=== PATIENT | male | born 1975 | race Caucasian/White ===

== ENCOUNTER → 2021-11-02 15:00 | Outpatient (CLI) | payer OTHER, SELFPAY ==
--- NOTE | 2021-11-02 15:03 | DI.RAD.S_ITS ---
PROCEDURE: XR KNEE RT 3V INDICATIONS: bilateral knee pain TECHNIQUE: 3 views of the knee were acquired. COMPARISON: [facility], CR, XR KNEE LT 3V, 11/02/2021, 15:10. FINDINGS: Bones: There is moderate femorotibial compartment narrowing and small tricompartmental osteophytes. Soft tissues: There is a trace knee joint effusion. IMPRESSION: Mild to moderate osteoarthritis and small joint effusion. Dictated by: Clementina Mac M.D. on 11/02/2021 at 16:10 Approved by: Clementina Mac M.D. on 11/02/2021 at 16:11
--- NOTE | 2021-11-02 15:03 | DI.RAD.S_ITS ---
PROCEDURE: XR KNEE LT 3V INDICATIONS: bilateral knee pain TECHNIQUE: 3 views of the knee were acquired. COMPARISON: None. FINDINGS: Bones: There is mild medial left femorotibial compartment narrowing. There are small patellofemoral osteophytes. Soft tissues: No joint effusion. No suspicious soft tissue calcifications. IMPRESSION: Mild degenerative change. Dictated by: Clementina Mac M.D. on 11/02/2021 at 16:10 Approved by: Clementina Mac M.D. on 11/02/2021 at 16:10
== END ==
PROVIDERS: PCP Family Medicine; Referring Provider Family Medicine; Visit Provider Family Medicine
DX: M17.11 Unilateral primary osteoarthritis, right knee (principal); M25.561 Pain in right knee; M25.562 Pain in left knee; M25.461 Effusion, right knee; G89.29 Other chronic pain
CPT/HCPCS: 73562

== ENCOUNTER → 2021-12-22 10:26 | Outpatient (CLI) | payer OTHER, SELFPAY ==
--- NOTE | 2021-12-22 10:51 | DIET.CONS ---
Dietary Consultation Note Assessment: 46y M attending RD visit with partner for help with weight loss secondary to osteoarthritis of knees. 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 Pt feels he feeds everyone else well but when it comes to himself, he is always second. Usual Day: wakes 7-8am cup or two coffee c sugar good water drinker-strength leaves for work 10-10:30am ordering, prepping, managing, cooking, some lunch service lunch starts noon sometimes makes a big salad Fri-Sun brunch service 10-2 algerian baby, biscuits and gravy 9pm family meal at end of the night- chicken, beef c veggies or potatoes dinner at 10pm. Often this meal doesn't get eaten, pt does not prefer leftovers. GF likes texmex, fried, casseroles. Had gastric sleeve surgery 8y ago and lost 175#. Pt has Mon, Tues off each week but is scramble to get house projects and shopping done. 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 No regular, intentional physical activity besides work related duties. 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 Interventions: 1. Introduced pt to hunger scale. Pt to start noticing hunger and fullness, eat when 3 and stop when 8. Pt will use scale to find meal time between 11am-2pm daily at work to regulate meal pattern. 2. Educated pt on OA and inflammation. Pt had been eating sweets and drinking beer, mostly avoiding now. Reinforced importance of Mediterranean diet on inflammation. 3. Pt with goal of maintaining 250# which is reasonable in relation to current lab workup. This 20# (on top of 8# since MD visit) loss, 10% total, will reduce pressure on knee joints. Set kcal level to 2300/d. 4. Introduced pt and partner to [employer] for mediterranean meal plans and recipe ideas. Pts partner not good cook unless unhealthy foods, this will assist her in learning how to transform vegetables to support high pro and high fiber diet. 5. Encouraged some regular physical activity that is structured such as walking on lunch break with partner or 15min yoga before bed. Both feel this is achievable. 6. Discussed iron content of foods. Pt loves clams, mussels, oysters. Recc pt consume these regularly to support iron stores and energy. EER: 2300kcals, 25g fiber Monitoring/Evaluations: prn Electronically Signed by: Andie Mendoza 12/22/21 10:51 Clinical Dietitian [address] [address]
[2021-12-22 11:42] VITALS: BMI 41.5
== END ==
PROVIDERS: PCP Family Medicine; Referring Provider Family Medicine; Visit Provider Family Medicine
DX: M17.0 Bilateral primary osteoarthritis of knee (principal); E66.9 Obesity, unspecified; Z71.3 Dietary counseling and surveillance; Z68.41 Body mass index [BMI] 40.0-44.9, adult
CPT/HCPCS: 97802

== ENCOUNTER → 2024-08-20 16:16 | Outpatient (CLI) | payer BC, SELFPAY ==
--- NOTE | 2024-08-20 16:17 | DI.RAD.S_ITS ---
PROCEDURE: XR LUMBAR SPINE 2-3V INDICATIONS: right thigh numbness and burning pain TECHNIQUE: 3 views of the lumbar spine were acquired. COMPARISON: None. FINDINGS: Bones: 5 [id number] vertebrae are present. There is normal bony alignment. Moderate L4-L5 and L5-S1 disc height loss with adjacent endplate sclerosis. Multilevel anterior osteophytosis from L3 through S1. Chronic appearing anterior wedging deformities the L3 and L4 vertebral bodies have resulted in less than 25% anterior height loss. No acute vertebral body compression fractures. No suspicious bony lesions. Soft tissues: Overlying bowel gas pattern is normal. No suspicious soft tissue calcifications. IMPRESSION: Degenerative change of the lumbar spine without evidence acute bony abnormality. Dictated by: Artem Higgins M.D. on 08/21/2024 at 3:48 Approved by: Artem Higgins M.D. on 08/21/2024 at 3:49
== END ==
PROVIDERS: PCP Family Medicine; Referring Provider Family Medicine; Visit Provider Family Medicine
DX: M47.816 Spondylosis without myelopathy or radiculopathy, lumbar region (principal); M54.50 Low back pain, unspecified; G89.29 Other chronic pain
CPT/HCPCS: 72100